=== PATIENT | male | born 1965 | race Hispanic/Latino ===

== ENCOUNTER 2022-01-07 19:12 | Inpatient (IN) | payer MEDICARE ==
[~2022-01-07] VITALS: Ht 180.3 cm; Wt 85.0 kg
[2022-01-07] MEDS: 0.9%NACL 1000ML 1,000 ML IV SCH (23:00)
[2022-01-07] MEDS ORDERED: ONDANSETRON 4MG INJ IV PRN (23:00)
[2022-01-07] MEDS ORDERED: NOREPINEPHRIN 4MG/NS 250ML 250 ML IV SCH (23:00)
[2022-01-07] MEDS ORDERED: ACETAMINOPHEN 325 MG TAB PO PRN (23:00)
[2022-01-07] MEDS ORDERED: NOREPINEPHRIN 4MG/NS 250ML 250 ML IV ONE (23:18)
[2022-01-07] MEDS ORDERED: 0.9%NACL 1000ML 1,000 ML IV ONE (23:30)
[2022-01-07 23:42] LABS: BASOPHILS % (AUTO) 0.1 % (0.0-5.0); EOSINOPHILS % (AUTO) 0.1 % (0.0-8.0); HEMATOCRIT 41.2 % (42-54); LYMPHOCYTES % (AUTO) 10.2 % (21.0-51.0); MEAN CORPUSCULAR HEMOGLOBIN 28.6 pg (27.0-33.0); MEAN CORPUSCULAR VOLUME 86.7 fL (79-99); MONOCYTES % (AUTO) 6.1 % (3.0-13.0); PLATELET COUNT (AUTO) 274 K/uL (130-400); RED BLOOD CELL COUNT(AUTO) 4.75 MIL/uL (4.50-6.20)
[2022-01-07 23:46] VITALS: BP 96/75
[2022-01-07 23:48] LABS: INR 1.11 (0.85-1.15)
[2022-01-07 23:49] LABS: PARTIAL THROMBOPLASTIN TIME 28.9 SEC (26.3-35.5)
[2022-01-07 23:53] LABS: ALBUMIN 3.3 g/dL (3.5-5.0); BILIRUBIN,TOTAL 0.7 mg/dL (0.2-1.0); CREATININE 1.4 mg/dL (0.5-1.5); MAGNESIUM 1.5 mg/dL (1.80-2.40); POTASSIUM 3.4 mmol/L (3.5-5.1); TOTAL PROTEIN, SERUM 7.5 g/dL (6.0-8.3)
[2022-01-08] VITALS (50 sets, daily range): BP systolic 89–166; BP diastolic 37–103
[2022-01-08 00:10] LABS: APPEARANCE,URINE CLEAR (CLEAR); BILIRUBIN,URINE SMALL (NEGATIVE); COLOR,URINE YELLOW (YELLOW); GLUCOSE, URINE (UA) NEGATIVE (NEGATIVE); KETONES,URINE 15 mg/dL (NEGATIVE); LEUKOCYTE ESTERASE ,URINE LARGE (NEGATIVE); NITRATE,URINE POSITIVE (NEGATIVE); OCCULT BLOOD,URINE LARGE (NEGATIVE); PROTEIN,URINE >=300 mg/dL (NEGATIVE)
[2022-01-08 00:24] LABS: RBC,URINE TNTC /HPF (0-1)
[2022-01-08 00:26] LABS: WBC,URINE 51-100 /HPF (0-1)
[2022-01-08 00:27] LABS: BACTERIA,URINE Few /HPF (None Seen)
[2022-01-08 00:28] LABS: SQUAMOUS EPITHELIAL CELL,UR Rare /HPF (0-2)
[2022-01-08] MEDS ORDERED: NEUTRA-PHOS PACKET 1 EACH PO SCH (00:30)
[2022-01-08] MEDS ORDERED: POTASSIUM CHLORIDE 20MEQ/100ML 100 ML IV PRN (00:30)
[2022-01-08] MEDS ORDERED: LIDOCAINE HCL-MPF 1% 2ML VIAL IV PRN (00:30)
[2022-01-08] MEDS: MEROPENEM 1 GM VIAL IVP SCH ×4 (00:30→23:46)
[2022-01-08] MEDS ORDERED: POTASSIUM CHLORIDE 10% ELIXIR 20 MEQ/15 ML UDCUP PO PRN (00:30)
[2022-01-08] MEDS ORDERED: BACL10TA PO (00:47)
[2022-01-08] MEDS ORDERED: ATOR10 PO (00:47)
[2022-01-08] MEDS ORDERED: METF-444 PO (00:47)
[2022-01-08] MEDS ORDERED: MIDO2.5T PO (00:49)
[2022-01-08] MEDS ORDERED: SERT-439 PO (00:49)
[2022-01-08] MEDS ORDERED: MEROPENEM 1 GM VIAL ONE (01:13)
[2022-01-08] MEDS ORDERED: MAGNESIUM 2GM PREMIX 50ML 50 ML IV ONE (01:13)
[2022-01-08] MEDS ORDERED: KCL 20 MEQ ERTAB PO ONE (01:13)
[2022-01-08] MEDS ORDERED: NEUTRA-PHOS PACKET 1 EACH ONE (01:13)
[2022-01-08] MEDS ORDERED: ASPIRIN 325MG TAB ONE (01:13)
[2022-01-08] MEDS ORDERED: ASPIRIN 325MG TAB PO ONE (01:30)
[2022-01-08 03:48] LABS: CREATININE 1.2 mg/dL (0.5-1.5); POTASSIUM 3.3 mmol/L (3.5-5.1)
[2022-01-08 04:47] LABS: HEMOGLOBIN A1C 6.2 % (4.0-6.0)
[2022-01-08] MEDS: KCL 20 MEQ ERTAB PO PRN ×2 (06:13→09:19)
[2022-01-08] MEDS: INSULIN HUMULIN R 100 UNIT/ML 3ML SQ SCH ×4 (06:39→19:49)
[2022-01-08] MEDS: 0.9%NACL 1000ML 1,000 ML IV SCH ×2 (07:40→13:25)
[2022-01-08] MEDS: FAMOTIDINE 20MG VIAL IV SCH ×2 (08:11→19:52)
[2022-01-08] MEDS: ENOXAPARIN SODIUM 40 MG/0.4 ML SYRINGE SQ SCH (08:12)
[2022-01-08] MEDS: ASPIRIN 81MG CHEW TAB PO SCH (08:12)
[2022-01-08 10:19] LABS: ABG BASE EXCESS -4.7 mmol/L (-2.0-3.0); ABG HCO3 18.7 mmol/L (21.0-28.0); ABG OXYGEN SATURATION 96.2 % (95.0-99.0); ABG PCO2 31 mmHg (35-48)
[2022-01-08 10:21] LABS: BASOPHILS % (AUTO) 0.2 % (0.0-5.0); EOSINOPHILS % (AUTO) 0.4 % (0.0-8.0); HEMATOCRIT 33.6 % (42-54); LYMPHOCYTES % (AUTO) 9.5 % (21.0-51.0); MEAN CORPUSCULAR HEMOGLOBIN 28.2 pg (27.0-33.0); MEAN CORPUSCULAR HGB CONC 32.7 g/dL (32.0-36.0); MEAN CORPUSCULAR VOLUME 86.2 fL (79-99); MONOCYTES % (AUTO) 6.1 % (3.0-13.0); NEUTROPHILS % (AUTO) 83.5 % (40.0-77.0); PLATELET COUNT (AUTO) 184 K/uL (130-400); RED CELL DISTRIBUTION WIDTH 13.9 % (11.0-15.5); WHITE BLOOD COUNT (AUTO) 10.1 K/uL (4.8-10.8)
[2022-01-08 10:34] LABS: CARBON DIOXIDE 21 mmol/L (21-32); CHLORIDE 108 mmol/L (101-111); GLOMERULAR FILTR. RATE CALC 82 mL/min (>60); GLUCOSE,RANDOM 150 mg/dL (70-105); POTASSIUM 3.7 mmol/L (3.5-5.1); SODIUM SERUM 137 mmol/L (136-145); UREA NITROGEN, BLOOD 15 mg/dL (7-18)
[2022-01-08 10:47] LABS: CREATINE KINASE, TOTAL 62 U/L (21-232); MYOGLOBIN 68 ng/mL (10-92); PHOSPHORUS 2.3 mg/dL (2.5-4.9); THYROID STIMULATING HORMONE 0.69 uIU/mL (0.36-3.74)
[2022-01-08 11:00] LABS: LIPASE < 50 U/L (114-286)
[2022-01-09] VITALS (21 sets, daily range): BP systolic 96–144; BP diastolic 59–94
[2022-01-09 02:01] LABS: BASOPHILS % (AUTO) 0.3 % (0.0-5.0); EOSINOPHILS % (AUTO) 1.2 % (0.0-8.0); HEMATOCRIT 29.9 % (42-54); LYMPHOCYTES % (AUTO) 14.9 % (21.0-51.0); MEAN CORPUSCULAR HEMOGLOBIN 29.1 pg (27.0-33.0); MEAN CORPUSCULAR HGB CONC 33.1 g/dL (32.0-36.0); MEAN CORPUSCULAR VOLUME 87.9 fL (79-99); MONOCYTES % (AUTO) 6.2 % (3.0-13.0); NEUTROPHILS % (AUTO) 77.1 % (40.0-77.0); PLATELET COUNT (AUTO) 154 K/uL (130-400); RED CELL DISTRIBUTION WIDTH 13.9 % (11.0-15.5); WHITE BLOOD COUNT (AUTO) 6.8 K/uL (4.8-10.8)
[2022-01-09 02:15] LABS: CREATININE 0.9 mg/dL (0.5-1.5); MAGNESIUM 1.8 mg/dL (1.80-2.40); PHOSPHORUS 1.9 mg/dL (2.5-4.9); POTASSIUM 3.3 mmol/L (3.5-5.1)
[2022-01-09] MEDS: INSULIN HUMULIN R 100 UNIT/ML 3ML SQ SCH ×4 (05:33→20:10)
[2022-01-09] MEDS: MEROPENEM 1 GM VIAL IVP SCH ×2 (08:15→15:54)
[2022-01-09] MEDS: FAMOTIDINE 20MG VIAL IV SCH ×2 (08:15→20:32)
[2022-01-09] MEDS: KCL 20 MEQ ERTAB PO PRN ×3 (08:16→13:27)
[2022-01-09] MEDS: CLOPIDOGREL 75MG TAB PO SCH (08:16)
[2022-01-09] MEDS: ASPIRIN 81MG CHEW TAB PO SCH (08:16)
[2022-01-09] MEDS: ENOXAPARIN SODIUM 40 MG/0.4 ML SYRINGE SQ SCH (08:17)
[2022-01-09] MEDS: NEUTRA-PHOS PACKET 1 EACH PO SCH ×2 (17:37→20:32)
[2022-01-09] MEDS: MAGNESIUM 2GM PREMIX 50ML 50 ML IV PRN (17:38)
[2022-01-10] MEDS: MEROPENEM 1 GM VIAL IVP SCH ×2 (00:02→10:46)
[2022-01-10 04:00] VITALS: BP 144/94
[2022-01-10 04:03] LABS: HEMATOCRIT 30.2 % (42-54); MEAN CORPUSCULAR HEMOGLOBIN 27.8 pg (27.0-33.0); MEAN CORPUSCULAR HGB CONC 32.1 g/dL (32.0-36.0); MEAN CORPUSCULAR VOLUME 86.5 fL (79-99); RED BLOOD CELL COUNT(AUTO) 3.49 MIL/uL (4.50-6.20); RED CELL DISTRIBUTION WIDTH 13.4 % (11.0-15.5); RETICULOCYTE % (AUTO) 1.27 % (0.42-2.23)
[2022-01-10 04:15] LABS: % IRON SATURATION 12.5 % (30-44)
[2022-01-10 04:45] LABS: CREATININE 0.8 mg/dL (0.5-1.5); MAGNESIUM 1.9 mg/dL (1.80-2.40); PHOSPHORUS 2.8 mg/dL (2.5-4.9); POTASSIUM 3.7 mmol/L (3.5-5.1); THYROID STIMULATING HORMONE 2.36 uIU/mL (0.36-3.74)
[2022-01-10] MEDS: KCL 20 MEQ ERTAB PO PRN (05:34)
[2022-01-10] MEDS: MAGNESIUM 2GM PREMIX 50ML 50 ML IV PRN (05:35)
[2022-01-10] MEDS: INSULIN HUMULIN R 100 UNIT/ML 3ML SQ SCH ×2 (06:00→11:30)
[2022-01-10 08:00] VITALS: BP 139/93
[2022-01-10] MEDS: ENOXAPARIN SODIUM 40 MG/0.4 ML SYRINGE SQ SCH (10:45)
[2022-01-10] MEDS: CLOPIDOGREL 75MG TAB PO SCH (10:46)
[2022-01-10] MEDS: FAMOTIDINE 20MG VIAL IV SCH (10:48)
[2022-01-10] MEDS: ASPIRIN 81MG CHEW TAB PO SCH (10:48)
[2022-01-10] MEDS: NEUTRA-PHOS PACKET 1 EACH PO SCH ×2 (10:54→12:04)
[2022-01-10 12:00] VITALS: BP 118/86
== END 2022-01-10 15:00 | DRG 871 ==
LOC: UNDOADMIN 19:12 → 2BH 19:12 → 2DH 01-09 11:38
PROVIDERS: ADMIT Internal Medicine; ATTEND Internal Medicine
DX: A41.9 Sepsis, unspecified organism (principal); R65.21 Severe sepsis with septic shock; I21.A1 Myocardial infarction type 2; E87.1 Hypo-osmolality and hyponatremia; G82.20 Paraplegia, unspecified; N30.00 Acute cystitis without hematuria; Z16.24 Resistance to multiple antibiotics; R33.8 Other retention of urine; E11.9 Type 2 diabetes mellitus without complications; E86.0 Dehydration; B96.4 Proteus (mirabilis) (morganii) as the cause of diseases classified elsewhere; E78.5 Hyperlipidemia, unspecified; E83.39 Other disorders of phosphorus metabolism; E87.6 Hypokalemia; E83.42 Hypomagnesemia; I45.10 Unspecified right bundle-branch block; I10 Essential (primary) hypertension; Z86.73 Personal history of transient ischemic attack (TIA), and cerebral infarction without residual deficits; Z93.0 Tracheostomy status; Z93.59 Other cystostomy status; Z98.1 Arthrodesis status
CPT/HCPCS: 36415; 36600; 71045; 76700; 80048; 80053; 81001; 82550; 82607; 82728; 82746; 82803; 82948; 83036; 83540; 83550; 83605; 83690; 83735; 83874; 83880; 83930; 83970; 84100; 84145; 84443; 84484; 85025; 85027; 85045; 85610; 85730; 87040; 87070; 87076; 87077; 87088; 87186; 93005; 93306; G0378; J1650; J2185; J3475; J3490; J7030